=== PATIENT | female | born 1995 | race American Indian/Alaskan Native ===

== ENCOUNTER 2020-10-06 15:08 | Inpatient (IN) | payer MEDICAID ==
[2020-10-06] MEDS ORDERED: MINERAL OIL 30 ML ORAL LIQD PO PRN (15:25)
[2020-10-06] MEDS ORDERED: ONDANSETRON 4 MG/2 ML INJ IV PRN (15:25)
[2020-10-06] MEDS ORDERED: ePHEDrine SULFATE 50 MG/1 ML INJ IV PRN (15:25)
[2020-10-06] MEDS ORDERED: fentaNYL 100 MCG/2 ML INJ IV PRN (15:25)
[2020-10-06] MEDS ORDERED: BUTORPHANOL 2 MG/1 ML INJ IV PRN ×2 (15:25)
--- NOTE | 2020-10-06 15:51 | History and Physical Report ---
History of Present Illness Date of examination: 10/06/20 Date of admission: 10/06/2020 Chief complaint: CHTN with possible superimposed preeclampsia sent from office for evaluation History of present illness: 25yo at 38.1 weeks by MARQUIS GALVAN , previous c/section with the following: CHTN with elevated BP's in the office for evaluation of possible superimposed pre-eclampsia. She is without complaints at bedside. 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 A Additional labs: O/pos H/H: 12.6/38.1 pap NILM Rubella immune VDRL NR HBsAg Negative HIV negative HSV2: negative PTL 204K GC/Chlamydia/Trich: negativex3 MSAFP negative GCT 148,3hour GTT WNL GBS negative Past History Past Medical History: asthma, hypertension Past Surgical History: section Family/Genetic History: other (severe cardiac anomaly in current ) Social history: no significant social history - Obstetrical History Expected Date of Delivery: 10/19/20 Actual Gestation: 38 Week(s) 1 Day(s) Medications and Allergies Allergies Allergy/AdvReac Type Severity Reaction Status Date / Time No Known Allergies Allergy Unverified 10/06/20 16:58 Active Meds: Active Medications Butorphanol Tartrate (Butorphanol 2 Mg/1 Ml Inj) 1 mg IV Q2H PRN PRN Reason: Pain, Moderate(4-6) LABOR PAIN Butorphanol Tartrate (Butorphanol 2 Mg/1 Ml Inj) 2 mg IV Q2H PRN PRN Reason: Pain , Severe (7-10) Ephedrine Sulfate (Ephedrine Sulfate 50 Mg/1 Ml Inj) 10 mg IV Q2M PRN PRN Reason: Hypotension Fentanyl (Fentanyl 100 Mcg/2 Ml Inj) 100 mcg IV Q2H PRN PRN Reason: Pain,Severe (7-10) LABOR PAIN Lactated Ringer's (Lactated Ringers) 1,000 mls @ 125 mls/hr IV DIRECT RALPH Labetalol HCl (Labetalol 200 Mg Tab) 100 mg PO BID RALPH Mineral Oil (Mineral Oil 30 Ml Oral Liqd) 30 ml PO QHS PRN PRN Reason: Constipation Ondansetron HCl (Ondansetron 4 Mg/2 Ml Inj) 4 mg IV Q8H PRN PRN Reason: Nausea And Vomiting Review of Systems All systems: negative (no OB or PIH complaints) - Physical Exam Breasts: Positive: deferred Cardiovascular: Regular rate Lungs: Positive: Clear to auscultation Abdomen: Positive: normal appearance, soft, normal bowel sounds Extremities: Positive: normal Deep Tendon Reflex Grade: Normal +2 - Obstetrical FHR: category 1 Results All other labs normal. Assessment and Plan CHTN r/out SI pre-eclampsia: labs, 24 hour urine and serial BPS Continue labetalol Asthma: stable NICU consult placed Mode of delivery: c/section for maternal/ indication Nan Cervantes MD
[2020-10-06 18:43] LABS: Hematocrit 31.5 % (30.3-42.9); Hemoglobin 10.5 gm/dl (10.1-14.3); Mean Corpuscular HGB Conc 33 % (30-34); Mean Corpuscular Volume 90 fl (79-97); Platelet Count 168 K/mm3 (140-440); Red Blood Count 3.51 M/mm3 (3.65-5.03); Red Cell Distribution Width 13.1 % (13.2-15.2)
[2020-10-06 19:05] LABS: Alanine Aminotransferase 6 units/L (7-56); Uric Acid 3.9 mg/dL (3.5-7.6)
--- NOTE | 2020-10-06 19:19 | Anesthesia Consultation ---
Anesthesia Consult and Med Hx Date of service: 10/06/20 - Airway Anesthetic Teeth Evaluation: Good ROM Head & Neck: Adequate Mental/Hyoid Distance: Adequate Mallampati Class: Class II Intubation Access Assessment: Good - Pulmonary Exam CTA: Yes - Cardiac Exam Cardiac Exam: RRR - Pre-Operative Health Status ASA Pre-Surgery Classification: ASA3 Proposed Anesthetic Plan: Epidural, Spinal - Pre-Anesthesia Comment Pre-Anesthesia Comments: severe cardiac anomaly in current - Pulmonary Hx Smoking: No Hx Asthma: Yes Hx Respiratory Symptoms: No SOB: No COPD: No Home Oxygen Therapy: No Hx Pneumonia: No Hx Sleep Apnea: No - Cardiovascular System Hx Hypertension: Yes (superimposed preeclampsia) Hx Coronary Artery Disease: No (severe cardiac anomaly in current ) Hx Heart Attack/AMI: No Hx Angina: No Hx Percutaneous Transluminal Coronary Angioplasty (PTCA): No Hx Cardia Arrhythmia: No Hx Pacemaker: No Hx Internal Defibrillator: No Hx Valvular Heart Disease: No Hx Heart Murmur: No Hx Peripheral Vascular Disease: No - Central Nervous System Hx Neuromuscular Disorder: No Hx Seizures: No CVA: No Hx Back Pain: No Hx Psychiatric Problems: No - Gastrointestinal Hx Ulcer: No Hx Gastroesophageal Reflux Disease: Yes - Endocrine Hx Renal Disease: No Hx End Stage Renal Disease: No Hx Cirrhosis: No Hx Liver Disease: No Hx Insulin Dependent Diabetes: No Hx Non-Insulin Dependent Diabetes: No Hx Thyroid Disease: No Hx Hypothyroidism: No Hx Hyperthyroidism: No - Hematic Hx Anemia: No Hx Sickle Cell Disease: No - Other Systems Hx Alcohol Use: No Hx Substance Use: No Hx Cancer: No Hx Obesity: Yes
[2020-10-06] MEDS: LACTATED RINGERS 1,000 ML IV SCH (20:36)
[2020-10-06 22:45] LABS: Bacteria,Urine 1+ /HPF (Negative); Bilirubin,Urine NEG (Negative); Blood,Urine NEG (Negative); Calcium Oxalate Crystals,Urine 1+; Color,Urine Yellow (Yellow); Mucus,Urine 3+ /HPF
[2020-10-07] MEDS: LACTATED RINGERS 1,000 ML IV SCH (06:39)
--- NOTE | 2020-10-07 09:41 | Progress Note ---
Assessment and Plan - Patient Problems (1) Chronic hypertension affecting Current Visit: Yes Status: Acute Plan to address problem: BP's are stable and preeclamptic serology was WNL. Awaiting 24 hr urine results late this afternoon. IF elevated, would proceed with repeat LTCS either today or tomorrow morning, depending on NICU and their potential transport arrangements for the baby, who has suspected cardiac defects that will required transfer to [place]. IF normal, may likely send pt home and return on Sat for her schedule RLTCS. Subjective - Subjective Date of service: 10/07/20 (38w 2d) Patient reports: other (PT doing well. No complaints. She had a few ctxs overnight per pt. None currently. No preeclamptic sxs.) Objective - Vital Signs Vital Signs: Vital Signs - 12hr 10/06/20 10/06/20 10/06/20 21:43 21:48 21:53 Temperature Pulse Rate 87 86 86 Respiratory Rate Blood Pressure Blood Pressure [Left] O2 Sat by Pulse 100 100 100 Oximetry 10/06/20 10/06/20 10/06/20 21:58 22:03 22:08 Temperature Pulse Rate 84 83 80 Respiratory Rate Blood Pressure Blood Pressure [Left] O2 Sat by Pulse 100 100 100 Oximetry 10/06/20 10/06/20 10/06/20 22:11 22:13 22:18 Temperature Pulse Rate 80 82 78 Respiratory Rate Blood Pressure 128/61 Blood Pressure [Left] O2 Sat by Pulse 100 100 Oximetry 10/06/20 10/06/20 10/06/20 22:23 22:28 22:33 Temperature Pulse Rate 88 88 86 Respiratory Rate Blood Pressure Blood Pressure [Left] O2 Sat by Pulse 99 100 100 Oximetry 10/06/20 10/06/20 10/06/20 22:38 22:43 22:48 Temperature Pulse Rate 76 78 80 Respiratory Rate Blood Pressure Blood Pressure [Left] O2 Sat by Pulse 100 100 99 Oximetry 10/06/20 10/06/20 10/06/20 22:53 22:58 23:03 Temperature Pulse Rate 110 H 85 85 Respiratory Rate Blood Pressure Blood Pressure [Left] O2 Sat by Pulse 100 100 98 Oximetry 10/06/20 10/06/20 10/06/20 23:08 23:13 23:18 Temperature Pulse Rate 82 77 75 Respiratory Rate Blood Pressure Blood Pressure [Left] O2 Sat by Pulse 100 99 100 Oximetry 10/06/20 10/06/20 10/06/20 23:23 23:28 23:33 Temperature Pulse Rate 72 77 86 Respiratory Rate Blood Pressure Blood Pressure [Left] O2 Sat by Pulse 100 99 99 Oximetry 10/06/20 10/06/20 10/06/20 23:38 23:43 23:48 Temperature Pulse Rate 77 77 79 Respiratory Rate Blood Pressure Blood Pressure [Left] O2 Sat by Pulse 100 99 100 Oximetry 10/06/20 10/07/20 10/07/20 23:58 00:03 00:08 Temperature Pulse Rate 100 H 79 81 Respiratory Rate Blood Pressure Blood Pressure [Left] O2 Sat by Pulse 99 99 99 Oximetry 10/07/20 10/07/20 10/07/20 00:13 00:18 00:23 Temperature Pulse Rate 75 80 79 Respiratory Rate Blood Pressure Blood Pressure [Left] O2 Sat by Pulse 98 99 98 Oximetry 10/07/20 10/07/20 10/07/20 00:28 00:30 00:33 Temperature 97.9 F Pulse Rate 76 89 80 Respiratory 16 Rate Blood Pressure Blood Pressure 127/62 [Left] O2 Sat by Pulse 99 97 99 Oximetry 10/07/20 10/07/20 10/07/20 00:38 00:43 00:48 Temperature Pulse Rate 89 86 93 H Respiratory Rate Blood Pressure 127/62 Blood Pressure [Left] O2 Sat by Pulse 97 100 100 Oximetry 10/07/20 10/07/20 10/07/20 00:53 00:58 01:03 Temperature Pulse Rate 87 81 83 Respiratory Rate Blood Pressure Blood Pressure [Left] O2 Sat by Pulse 100 100 100 Oximetry 10/07/20 10/07/20 10/07/20 01:08 01:13 01:18 Temperature Pulse Rate 83 101 H 80 Respiratory Rate Blood Pressure Blood Pressure [Left] O2 Sat by Pulse 100 100 100 Oximetry 10/07/20 10/07/20 10/07/20 01:23 01:28 01:33 Temperature Pulse Rate 84 82 81 Respiratory Rate Blood Pressure Blood Pressure [Left] O2 Sat by Pulse 99 99 99 Oximetry 10/07/20 10/07/20 10/07/20 01:38 01:43 01:48 Temperature Pulse Rate 92 H 80 98 H Respiratory Rate Blood Pressure Blood Pressure [Left] O2 Sat by Pulse 100 100 99 Oximetry 10/07/20 10/07/20 10/07/20 01:53 01:58 02:03 Temperature Pulse Rate 92 H 84 80 Respiratory Rate Blood Pressure Blood Pressure [Left] O2 Sat by Pulse 99 99 98 Oximetry 10/07/20 10/07/20 10/07/20 02:08 02:13 02:18 Temperature Pulse Rate 79 80 79 Respiratory Rate Blood Pressure Blood Pressure [Left] O2 Sat by Pulse 100 100 99 Oximetry 10/07/20 10/07/20 10/07/20 02:23 02:28 02:33 Temperature Pulse Rate 80 86 86 Respiratory Rate Blood Pressure Blood Pressure [Left] O2 Sat by Pulse 100 98 100 Oximetry 10/07/20 10/07/20 10/07/20 02:38 02:43 02:52 Temperature Pulse Rate 80 77 123 H Respiratory Rate Blood Pressure Blood Pressure [Left] O2 Sat by Pulse 99 99 100 Oximetry 10/07/20 10/07/20 10/07/20 02:57 03:02 03:07 Temperature Pulse Rate 80 92 H 76 Respiratory Rate Blood Pressure Blood Pressure [Left] O2 Sat by Pulse 100 100 100 Oximetry 10/07/20 10/07/20 10/07/20 03:12 03:17 03:22 Temperature Pulse Rate 85 83 80 Respiratory Rate Blood Pressure Blood Pressure [Left] O2 Sat by Pulse 100 100 100 Oximetry 10/07/20 10/07/20 10/07/20 03:27 03:32 03:37 Temperature Pulse Rate 77 78 80 Respiratory Rate Blood Pressure Blood Pressure [Left] O2 Sat by Pulse 99 100 100 Oximetry 10/07/20 10/07/20 10/07/20 03:42 03:47 03:52 Temperature Pulse Rate 83 88 89 Respiratory Rate Blood Pressure Blood Pressure [Left] O2 Sat by Pulse 99 100 100 Oximetry 10/07/20 10/07/20 10/07/20 03:57 04:02 04:07 Temperature Pulse Rate 77 81 77 Respiratory Rate Blood Pressure Blood Pressure [Left] O2 Sat by Pulse 100 100 100 Oximetry 10/07/20 10/07/20 10/07/20 04:12 04:17 04:22 Temperature Pulse Rate 80 74 84 Respiratory Rate Blood Pressure Blood Pressure [Left] O2 Sat by Pulse 100 100 100 Oximetry 10/07/20 10/07/20 10/07/20 04:31 04:36 04:41 Temperature Pulse Rate 108 H 87 75 Respiratory Rate Blood Pressure Blood Pressure [Left] O2 Sat by Pulse 95 99 99 Oximetry 10/07/20 10/07/20 10/07/20 04:45 04:46 04:51 Temperature 98.2 F Pulse Rate 73 72 71 Respiratory 16 Rate Blood Pressure Blood Pressure 130/64 [Left] O2 Sat by Pulse 100 100 100 Oximetry 10/07/20 10/07/20 10/07/20 04:56 05:01 05:06 Temperature Pulse Rate 73 75 77 Respiratory Rate Blood Pressure Blood Pressure [Left] O2 Sat by Pulse 100 100 100 Oximetry 10/07/20 10/07/20 10/07/20 05:11 05:16 05:21 Temperature Pulse Rate 84 84 77 Respiratory Rate Blood Pressure Blood Pressure [Left] O2 Sat by Pulse 99 99 100 Oximetry 10/07/20 10/07/20 10/07/20 05:26 05:31 05:36 Temperature Pulse Rate 89 80 77 Respiratory Rate Blood Pressure Blood Pressure [Left] O2 Sat by Pulse 99 100 100 Oximetry 10/07/20 10/07/20 10/07/20 05:47 05:52 05:57 Temperature Pulse Rate 109 H 74 80 Respiratory Rate Blood Pressure Blood Pressure [Left] O2 Sat by Pulse 99 100 100 Oximetry 10/07/20 10/07/20 10/07/20 06:02 06:07 06:12 Temperature Pulse Rate 75 91 H 76 Respiratory Rate Blood Pressure Blood Pressure [Left] O2 Sat by Pulse 100 100 100 Oximetry 10/07/20 10/07/20 10/07/20 06:17 06:22 06:27 Temperature Pulse Rate 83 71 75 Respiratory Rate Blood Pressure Blood Pressure [Left] O2 Sat by Pulse 100 100 100 Oximetry 10/07/20 10/07/20 10/07/20 06:32 06:37 06:42 Temperature Pulse Rate 78 81 75 Respiratory Rate Blood Pressure Blood Pressure [Left] O2 Sat by Pulse 99 100 100 Oximetry 10/07/20 10/07/20 10/07/20 06:47 06:52 06:57 Temperature Pulse Rate 83 84 75 Respiratory Rate Blood Pressure Blood Pressure [Left] O2 Sat by Pulse 99 100 100 Oximetry 10/07/20 10/07/20 10/07/20 07:02 07:07 07:12 Temperature Pulse Rate 77 74 79 Respiratory Rate Blood Pressure Blood Pressure [Left] O2 Sat by Pulse 100 99 100 Oximetry 10/07/20 10/07/20 10/07/20 07:17 07:22 07:27 Temperature Pulse Rate 76 72 82 Respiratory Rate Blood Pressure Blood Pressure [Left] O2 Sat by Pulse 100 100 99 Oximetry 10/07/20 10/07/20 10/07/20 07:32 07:37 07:42 Temperature Pulse Rate 73 78 77 Respiratory Rate Blood Pressure Blood Pressure [Left] O2 Sat by Pulse 100 99 99 Oximetry 10/07/20 10/07/20 10/07/20 07:47 07:52 07:57 Temperature Pulse Rate 79 77 77 Respiratory Rate Blood Pressure Blood Pressure [Left] O2 Sat by Pulse 99 100 98 Oximetry 10/07/20 10/07/20 10/07/20 08:02 08:07 08:12 Temperature Pulse Rate 75 82 78 Respiratory Rate Blood Pressure Blood Pressure [Left] O2 Sat by Pulse 97 100 99 Oximetry 10/07/20 10/07/20 10/07/20 08:17 08:22 08:27 Temperature Pulse Rate 77 82 77 Respiratory Rate Blood Pressure Blood Pressure [Left] O2 Sat by Pulse 99 100 99 Oximetry 10/07/20 10/07/20 10/07/20 08:32 08:40 08:45 Temperature Pulse Rate 76 111 H 75 Respiratory Rate Blood Pressure Blood Pressure [Left] O2 Sat by Pulse 100 100 100 Oximetry 10/07/20 10/07/20 10/07/20 08:50 08:55 09:00 Temperature Pulse Rate 73 65 76 Respiratory Rate Blood Pressure Blood Pressure [Left] O2 Sat by Pulse 99 100 99 Oximetry 10/07/20 10/07/20 10/07/20 09:05 09:10 09:15 Temperature Pulse Rate 78 82 79 Respiratory Rate Blood Pressure Blood Pressure [Left] O2 Sat by Pulse 98 99 97 Oximetry 10/07/20 10/07/20 10/07/20 09:20 09:25 09:30 Temperature Pulse Rate 92 H 74 79 Respiratory Rate Blood Pressure Blood Pressure [Left] O2 Sat by Pulse 97 98 100 Oximetry 10/07/20 10/07/20 09:35 09:40 Temperature Pulse Rate 83 78 Respiratory Rate Blood Pressure Blood Pressure [Left] O2 Sat by Pulse 100 98 Oximetry - Labs Labs: Abnormal Labs 10/06/20 10/06/20 18:15 18:15 RBC 3.51 L RDW 13.1 L ALT 6 L Lactate Dehydrogenase 194 H Laboratory Results - last 24 hr 10/06/20 10/06/20 10/06/20 18:15 18:15 18:15 WBC 7.1 RBC 3.51 L Hgb 10.5 Hct 31.5 MCV 90 MCH 30 MCHC 33 RDW 13.1 L Plt Count 168 Creatinine 0.6 Estimated GFR > 60 Uric Acid 3.9 AST 14 ALT 6 L Lactate Dehydrogenase 194 H Urine Color Urine Turbidity Urine pH Ur Specific [place] Urine Protein Urine Glucose (UA) Urine Ketones Urine Blood Urine Nitrite Urine Bilirubin Urine Urobilinogen Ur Leukocyte Esterase Urine WBC (Auto) Urine RBC (Auto) U Epithel Cells (Auto) Urine Bacteria (Auto) Calcium Oxalate Crystal Urine Mucus Blood Type O POSITIVE Antibody Screen Negative 10/06/20 20:30 WBC RBC Hgb Hct MCV MCH MCHC RDW Plt Count Creatinine Estimated GFR Uric Acid AST ALT Lactate Dehydrogenase Urine Color Yellow Urine Turbidity Clear Urine pH 6.0 Ur Specific [place] 1.023 Urine Protein 100 mg/dl Urine Glucose (UA) Neg Urine Ketones Tr Urine Blood Neg Urine Nitrite Neg Urine Bilirubin Neg Urine Urobilinogen 4.0 Ur Leukocyte Esterase Neg Urine WBC (Auto) 3.0 Urine RBC (Auto) 5.0 U Epithel Cells (Auto) 4.0 Urine Bacteria (Auto) 1+ Calcium Oxalate Crystal 1+ Urine Mucus 3+ Blood Type Antibody Screen
--- NOTE | 2020-10-07 14:56 | Consultation ---
Consult Note - Parent Education I met with parent(s) and discussed the following:: Need for NICU admission (For congenital heart disease. ) Parent(s) demonstrated understanding of all the information:: Yes Additional Comment: Mother is aware of baby's cardiac condition and has been evaluated by Peds emergency response technician. Baby will be admitted to the NICU with immediate consultation with ground equipment mechanic to determine the plan of care including [facility] versus continued care in this NICU for a few days. Per peds cardiologsit surgical intervention may be delayed for a few months following delivery. Both parents understand the plan of care and have no questions or concerns at this time. Assessment and Plan - Assessment Gestation:: 38 Baby's gender: Male - Plan Plan: Timing for delivery per OB for maternal/ indications NICU will attend delivery Maintain normal sats in delivery room Please call NICU with questions
--- NOTE | 2020-10-07 15:58 | Post Anesthesia Evaluation ---
- Post Anesthesia Evaluation Patient Participated: Yes Airway Patent: Yes Stable Respiratory Function: Yes Nausea/Vomiting: No Temp > 96.8F: Yes Pain Manageable: Yes Adequeate Hydration: Yes Anesthesia Complications: No Block Receding Appropriately: Yes Patient on Ventilator: No
[2020-10-07 19:41] VITALS: BP 130/64
== END 2020-10-07 22:10 | disposition home or self-care (01) | DRG 781 ==
LOC: EDBD 15:08 → TRG 15:08 → LD 15:12 → TRG 16:00 → LD 16:02
PROVIDERS: ADMIT Obstetrics & Gynecology; ATTEND Obstetrics & Gynecology
DX: O10.913 Unspecified pre-existing hypertension complicating pregnancy, third trimester (principal); Z3A.38 38 weeks gestation of pregnancy; J45.909 Unspecified asthma, uncomplicated; K21.9 Gastro-esophageal reflux disease without esophagitis; O99.613 Diseases of the digestive system complicating pregnancy, third trimester; O99.513 Diseases of the respiratory system complicating pregnancy, third trimester
CPT/HCPCS: 36415; 81001; 82565; 83615; 84156; 84450; 84460; 84550; 85027; 86850; 86900; 86901; G0378; J7120; U0003